=== PATIENT | female | born 1955 | race Caucasian/White ===

== ENCOUNTER → 2017-05-15 | Day surgery (SDC) | payer OTHER ==
[~2017-05-15] VITALS: Ht 180.3 cm; Wt 106.1 kg
[~2017-05-15] MED LIST: 0.9% Sodium Chloride 1,000 ML IV ONE; 0.9% Sodium Chloride 1,000 ML IV SCH; ASPI-973 PO; ATOR20TA PO; CETI5TAB28 PO; EMPA10TA PO; FENO43CA3 PO; FLUO20TA28 PO; HYDR25TA4 PO; LISI40TA PO; METF500T4 PO; METO-394 PO; MULT-1018 PO; NPH,100V11 SUBQ; RISP0.5T4 PO; SPIR25TA3 PO; Sodium Chloride LOK Flush 10 mL Syringe IV PRN; fentaNYL-PF 50 mCg/mL 2 mL Inj IVPUSH PRN
[2017-05-15 10:09] VITALS: BP 138/57; PULSE 67; RESP 16; O2SAT 92
[2017-05-15 10:18] VITALS: BP 140/51; PULSE 65; RESP 16; O2SAT 91
--- NOTE | 2017-05-15 11:09 | ENDO ---
[address] [address] ENDOSCOPY PROCEDURE PATIENT: CHLOE BHARDWAJ : 1955 MR#: [id number] ADMIT: 05/15/2017 JOB ID: [id number] DATE: 05/15/2017 TYPE OF PROCEDURE: Colonoscopy INDICATIONS: Screening. Patient's ASA classification is 2. Mallampati score is 2. MEDICATIONS: 1. Versed 4 mg. 2. Fentanyl 75 mcg. INSTRUMENT USED: PCF-H180AL PREPARATION QUALITY: Good. PROCEDURE DETAILS: After informed consent was obtained, the patient was brought into the GI suite, where she was placed on oxygen via nasal cannula and monitored with continuous pulse oximeter, telemetry, and blood pressure monitoring. A time-out was performed. Then, she was placed in a left lateral decubitus position and medications were administered for sedation. Digital rectal exam was performed unremarkable. The colonoscope was then inserted into the rectum and advanced under direct visualization to the cecum which was identified by the presence of the ileocecal valve and appendiceal orifice. Once the cecum was reached, the colonoscope was withdrawn back into the rectum. Mucosa and lumen were examined. In the rectum, retroflexion was performed. Following retroflexion, remaining air in the rectum was suctioned and procedure was completed. FINDINGS: In the cecum there is an approximately 4 mm sessile polyp that was removed with a cold snare. IMPRESSION: Cecal polyp. RECOMMENDATIONS: Repeat colonoscopy in five years sooner if symptoms dictate. COMPLICATIONS: None. ESTIMATED BLOOD LOSS: Less than 5 mL.
--- NOTE | 2017-05-16 16:59 | PATH ---
SURGICAL PATHOLOGY Attending Physician:Zuleyka Bee CASE STATUS: Signed Out PATIENT NAME: CHLOE BHARDWAJ PID: [id number] : 1955 DATE COLLECTED:05/15/2017 19:44 SPECIMEN: Colon, Polyp CLINICAL HISTORY: 1). CECUM POLYP FINAL DIAGNOSIS: Cecal Polyp, Polypectomy: Sessile serrated adenoma. ICD10: D12.0 GROSS DESCRIPTION: The specimen is received in one formalin filled container labeled with the patient's name, sublabeled "cecum polyp" and consists of 3 portions of tissue which aggregate to 0.2 x 0.2 x 0.2 CM. The specimen is entirely submitted in one cassette. 05/15/2017DC ICD-9 CODES: CPT CODES: 1: 38928 Electronically Signed Out Andres Noriega MD, Ph.D. [facility] Pathology [facility] [address], [place] [address] Technical component performed at [facility], [facility] [address], [place], [address]
== END | disposition home or self-care (01) ==
LOC: END 01:19
PROVIDERS: ATTEND Internal Medicine Gastroenterology
DX: Z12.11 Encounter for screening for malignant neoplasm of colon (principal); D12.0 Benign neoplasm of cecum; I10 Essential (primary) hypertension; E11.65 Type 2 diabetes mellitus with hyperglycemia; E78.1 Pure hyperglyceridemia; F23 Brief psychotic disorder; E07.9 Disorder of thyroid, unspecified; Z79.4 Long term (current) use of insulin; Z79.82 Long term (current) use of aspirin; Z79.84 Long term (current) use of oral hypoglycemic drugs
CPT/HCPCS: 45385; G0500; J2250; J3010; J7030